=== PATIENT | female | born 1935 | race Caucasian/White ===

== ENCOUNTER → 2016-04-03 12:37 | Outpatient (CLI) | payer MEDICARE, OTHER ==
[2010-04-09 08:29] VITALS: BMI 24.3
== END | disposition home or self-care (01) ==
LOC: D.CT 12:37
DX: I73.9 Peripheral vascular disease, unspecified (principal)

== ENCOUNTER → 2018-04-02 11:06 | Outpatient (CLI) | payer MEDICARE, OTHER ==
[2010-04-09 08:29] VITALS: BMI 24.3
== END | disposition home or self-care (01) ==
LOC: D.CT 11:00
DX: M25.561 Pain in right knee (principal)

== ENCOUNTER 2018-06-08 21:41 | Inpatient (IN) | payer MEDICARE, OTHER ==
[~2018-06-08] VITALS: Ht 160 cm; Wt 56.6 kg
[2018-06-08 23:08] LABS: BASOPHILS 0.5 % (0-2); EOSINOPHILS 0.3 % (0-7); HEMATOCRIT 34.5 % (36.0-48.0); HEMOGLOBIN 11.9 g/dL (12-16); LYMPHOCYTES 16.7 % (15-50); MCH 29.5 pg (26.0-34.0); MCHC 34.5 g/dL (31.0-37.0); MCV 85.6 fL (80.0-100.0); MEAN PLATELET VOLUME 8.9 fL (7.4-10.4); NEUTROPHILS 64.5 % (40-80); PLATELET COUNT 198 10x3/uL (130-400); RBC 4.03 10x6/uL (4.00-5.40); RDW 19.1 % (11.5-14.5); WBC 11.8 10x3/uL (4.8-10.8)
[2018-06-08 23:22] LABS: ALBUMIN 2.9 g/dL (3.4-5.0); BILIRUBIN - TOTAL 0.26 mg/dL (0.2-1.3); CALCIUM 10.4 mg/dL (8.5-10.1); CARBON DIOXIDE 24.8 mmol/L (21.0-32.0); CREATININE - SERUM 1.5 mg/dL (0.6-1.3); POTASSIUM - SERUM 5.8 mmol/L (3.5-5.1); PROTEIN - SERUM 7.2 g/dL (6.4-8.2)
--- NOTE | 2018-06-08 23:38 | NUR ---
IN AND OUT CATH PERFORMED TO OBTAIN URINE SAMPLE. SAMPLE SENT TO LAB
[2018-06-09] VITALS (8 sets, daily range): BP systolic 128–154; BP diastolic 45–87; Ht 160 cm; Wt 56.6 kg
[2018-06-09 00:06] LABS: APPEARANCE CLEAR (CLEAR); BILIRUBIN NEGATIVE (NEGATIVE); COLOR YELLOW (YELLOW); GLUCOSE NEGATIVE (NEGATIVE); KETONE NEGATIVE (NEGATIVE); NITRITE NEGATIVE (NEGATIVE); PROTEIN NEGATIVE (NEGATIVE); UROBILINOGEN NORMAL (NORMAL)
--- NOTE | 2018-06-09 02:46 | NUR ---
NOTIFIED [facility] THAT PT WAS GOING TO BE ADMITTED.
--- NOTE | 2018-06-09 03:32 | NUR ---
PT RESTING NO DISTRESS NOTED.
--- NOTE | 2018-06-09 03:33 | NUR ---
STOP TIME FOR CA GLUCONATE 1343
--- NOTE | 2018-06-09 03:43 | NUR ---
DENTURE CUP GIVEN TO PT FAMILY FOR DENTURES TO BE PLACED IN.
--- NOTE | 2018-06-09 05:08 | NUR ---
pt resting with family at bedside. no distress noted.
--- NOTE | 2018-06-09 06:23 | NUR ---
PT RESTING NO DISTRESS NOTED. FAMILY AT BEDSIDE. BED LOW LOCKED POSITON, SIDE RAILS UP TIMES TWO, CALL LIGHT WITHIN REACH.
[2018-06-09 06:24] LABS: ANION GAP 11.8 mmol/L (8-16); CALCIUM 10.4 mg/dL (8.5-10.1); CARBON DIOXIDE 23.8 mmol/L (21.0-32.0); CREATININE - SERUM 1.3 mg/dL (0.6-1.3); POTASSIUM - SERUM 5.6 mmol/L (3.5-5.1)
[2018-06-09] MEDS ORDERED: COREG12.5 MG PO (07:39)
[2018-06-09] MEDS ORDERED: BACTRIM 400-801 TAB PO (07:39)
[2018-06-09] MEDS ORDERED: CARAFATE1 G PO (07:39)
[2018-06-09] MEDS ORDERED: COZAAR100 MG PO (07:40)
[2018-06-09] MEDS ORDERED: DEMADEX20 MG PO (07:41)
[2018-06-09] MEDS ORDERED: CARDIZEM CD240 MG PO (07:41)
[2018-06-09] MEDS ORDERED: LANOXIN125 MCG PO (07:42)
[2018-06-09] MEDS ORDERED: MEGACE40 MG PO (07:43)
[2018-06-09] MEDS ORDERED: REMERON15 MG PO (07:44)
[2018-06-09] MEDS ORDERED: HYDROCODON-ACE1 EAC2 PO (07:44)
[2018-06-09] MEDS ORDERED: MIRALAX17 GM PO (07:44)
[2018-06-09] MEDS ORDERED: SENEXON8.6 MG PO (07:45)
[2018-06-09] MEDS ORDERED: ZOFRAN4 MG PO (07:46)
[2018-06-09] MEDS ORDERED: ZANAFLEX2 M1 PO (07:46)
[2018-06-09 08:02] LABS: % SATURATION 49 % (15-55); IRON 160 ug/dl (35-150); TOTAL IRON BIND CAPACITY 321 ug/dl (260-445); UNSAT IRON BIND CAPACITY 161 ug/dl (150-375)
--- NOTE | 2018-06-09 09:10 | NUR ---
SON RICKI AT BEDSIDE. GIVEN UDPATE
--- NOTE | 2018-06-09 12:10 | NUR ---
ATE 50% LUNCH
[2018-06-09 13:13] LABS: ANION GAP 16.5 mmol/L (8-16); CALCIUM 10.1 mg/dL (8.5-10.1); CARBON DIOXIDE 18.2 mmol/L (21.0-32.0)
--- NOTE | 2018-06-09 13:14 | NUR ---
DR SEBASTIAN AT BEDSIDE. GIVEN UPDATE
[2018-06-09 13:24] LABS: POTASSIUM - SERUM 4.7 mmol/L (3.5-5.1)
--- NOTE | 2018-06-09 14:52 | NUR ---
CALLED RICKI (SON) AT THIS TIME. NO ANSWER LEFT MESSAGE PT MOVING TO ROOM 1206 AT THIS TIME.
--- NOTE | 2018-06-09 15:20 | NUR ---
PT ARRIVED TO UNIT VIA WHEELCHAIR ASSISTED BY ICU NURSE. VSS AND WNL. PT TRANSFERRED INTO BED. CALL LIGHT WITHIN REACH, PT RESTING QUIETLY
--- NOTE | 2018-06-09 19:45 | NUR ---
RESUMING CARE. PT LAYING IN BED EYES CLOSED BREATH SOUNDS EVEN UNLABORED , PT ON RA, HAS IV IN LFT AC RUNNING NS@100, ESPANA IN PLACE , NO C/O PAIN OR DISTRESS AT THIS TIME CALL IN REACH WILL CONT TO MONITOR
[2018-06-10] VITALS: BP 158/71
[2018-06-10 04:00] VITALS: BP 117/78
--- NOTE | 2018-06-10 04:18 | NUR ---
I have reviewed this patient and I concur with the Shift Assessment completed by the Licensed Practical Nurse today this shift.
[2018-06-10 05:53] LABS: BASOPHILS 0.4 % (0-2); EOSINOPHILS 0.7 % (0-7); HEMATOCRIT 38.8 % (36.0-48.0); HEMOGLOBIN 13.2 g/dL (12-16); IMMATURE GRANULOCYTES 5.5 % (0-5); LYMPHOCYTES 17.9 % (15-50); MCH 29.5 pg (26.0-34.0); MCV 86.6 fL (80.0-100.0); MEAN PLATELET VOLUME 9.5 fL (7.4-10.4); MONOCYTES 11.4 % (2-11); NEUTROPHILS 64.1 % (40-80); PLATELET COUNT 233 10x3/uL (130-400); RBC 4.48 10x6/uL (4.00-5.40); RDW 19.1 % (11.5-14.5); WBC 11.9 10x3/uL (4.8-10.8)
[2018-06-10 06:15] LABS: ANION GAP 14.4 mmol/L (8-16); CREATININE - SERUM 1.1 mg/dL (0.6-1.3); POTASSIUM - SERUM 5.4 mmol/L (3.5-5.1)
[2018-06-10 07:30] VITALS: BP 128/68
[2018-06-10 10:22] LABS: FOLATE (FOLIC ACID) - SERUM >20.0 ng/mL (>3.0)
[2018-06-10 12:00] VITALS: BP 157/76
--- NOTE | 2018-06-10 20:45 | NUR ---
WATCHING TV QUIELTY.RESP UNALBORED. NO DISTRESS NOTED. IV TO RFA INTACT WITH NO REDNESS OR EDEMA NOTED. DRSG TO LEFT FOOT INTACT WTIH NO DRAINAGE NOTED.CL IN REACH.
[2018-06-10 21:52] VITALS: BP 167/88
[2018-06-11 00:30] VITALS: BP 143/83
--- NOTE | 2018-06-11 02:14 | NUR ---
I have reviewed this patient and I concur with the Shift Assessment completed by the Licensed Practical Nurse today this shift.
[2018-06-11 05:10] VITALS: BP 172/97
[2018-06-11 06:56] LABS: ANION GAP 13.9 mmol/L (8-16); CALCIUM 9.7 mg/dL (8.5-10.1); CARBON DIOXIDE 17.6 mmol/L (21.0-32.0)
[2018-06-11 06:57] LABS: CREATININE - SERUM 0.8 mg/dL (0.6-1.3); POTASSIUM - SERUM 4.5 mmol/L (3.5-5.1)
[2018-06-11 07:03] LABS: BASOPHILS 0.3 % (0-2); EOSINOPHILS 0.5 % (0-7); HEMATOCRIT 37.4 % (36.0-48.0); HEMOGLOBIN 13.1 g/dL (12-16); IMMATURE GRANULOCYTES 2.5 % (0-5); LYMPHOCYTES 18.3 % (15-50); MCH 30.1 pg (26.0-34.0); MEAN PLATELET VOLUME 9.1 fL (7.4-10.4); MONOCYTES 11.6 % (2-11); NEUTROPHILS 66.8 % (40-80); PLATELET COUNT 224 10x3/uL (130-400); RBC 4.35 10x6/uL (4.00-5.40); RDW 18.6 % (11.5-14.5)
[2018-06-11 07:11] LABS: WBC 15.4 10x3/uL (4.8-10.8)
--- NOTE | 2018-06-11 08:00 | NUR ---
PT RESTING IN BED, ASSISTED PT WITH USING THE BEDPAN. SHIFT ASSESSMENT PERFORMED. AM MEDS GIVEN ORDERED. ASSISTED PT WITH BED BATH AND FULL LINEN CHANGE. CHANGED DRESSING TO PT LLE ORDERED. PT TOLERATED WELL. DENIES ANY OTHER NEEDS AT THIS TIME, WILL CONT TO FOLLOW PLAN OF CARE
[2018-06-11 08:01] VITALS: BP 172/92
--- NOTE | 2018-06-11 13:14 | NUR ---
Nutrition Follow Up: Pt stated that her appetite is decreased. RD encouraged pt to increase po intake as able to increase strength, promote healing, etc. Diet: AHA PO Intake: 42% meal avg BM: 06/10/18 Wt loss noted per chart and son Noted pt with chronic LLE wound Labs reviewed Meds noted including Megace, Remeron Rec liberalizing diet to encourage po intake. Will honor food preferences within diet. RD following.
--- NOTE | 2018-06-11 19:00 | NUR ---
BEDSIDE SHIFT REPORT GIVEN. PT RESTING QUIETLY IN BED. NO FURTHER NEEDS.
--- NOTE | 2018-06-11 19:38 | NUR ---
PT IN BED RESTING. AROUSES TO DOOR OPENING. PT DENIES NEEDS AT THIS TIME.
[2018-06-11 20:40] VITALS: BP 154/76
--- NOTE | 2018-06-11 22:39 | NUR ---
IV S[facility] TO [facility] 1 STICK. FLUIDS RESUMED.
[2018-06-12 00:45] VITALS: BP 126/64
--- NOTE | 2018-06-12 05:23 | NUR ---
I have reviewed this patient and I concur with the Shift Assessment completed by the Licensed Practical Nurse today this shift.
[2018-06-12 05:43] VITALS: BP 121/60
[2018-06-12 08:56] LABS: BASOPHILS 0.4 % (0-2); EOSINOPHILS 1.1 % (0-7); HEMOGLOBIN 14.1 g/dL (12-16); IMMATURE GRANULOCYTES 3.8 % (0-5); LYMPHOCYTES 20.6 % (15-50); MCH 30.3 pg (26.0-34.0); MCHC 34.4 g/dL (31.0-37.0); MEAN PLATELET VOLUME 9.1 fL (7.4-10.4); MONOCYTES 8.9 % (2-11); NEUTROPHILS 65.2 % (40-80); PLATELET COUNT 243 10x3/uL (130-400); RBC 4.66 10x6/uL (4.00-5.40); RDW 18.9 % (11.5-14.5); WBC 12.1 10x3/uL (4.8-10.8)
[2018-06-12 09:07] VITALS: BP 102/66
[2018-06-12 09:10] LABS: ANION GAP 13.8 mmol/L (8-16); CARBON DIOXIDE 19.7 mmol/L (21.0-32.0); CREATININE - SERUM 0.9 mg/dL (0.6-1.3); POTASSIUM - SERUM 4.5 mmol/L (3.5-5.1)
--- NOTE | 2018-06-12 11:23 | NUR ---
PT A/O X 4. FAMILY AT BEDSIDE THIS MORNING CONCERNED ABOUT PT SODIUM LEVEL AND WBC COUNT. VITALS STABLE. TOOK MEDICATIONS WITHOUT DIFFICULTY. DENIES PAIN THIS AM. R AC IV WITH NS @ 50. RM AIR. ABD DISTENDED. PACED ON TELE. L LEG ULCER. MEPELEX TO BUTTOCKS. NO FURTHER CONCERNS AT THIS TIME. BED LOWERED AND LOCKED. CL IN REACH. WILL CPOC.
--- NOTE | 2018-06-12 12:10 | NUR ---
Nutrition follow-up: Diet: low sodium PO intake ~25-50% of meals Labs reviewed Wt: 128# RDN following.
[2018-06-12 13:50] VITALS: BP 110/76
[2018-06-12 15:21] LABS: ALBUMIN 2.7 g/dL (3.4-5.0); ANION GAP 17.1 mmol/L (8-16); BILIRUBIN - TOTAL 0.45 mg/dL (0.2-1.3); CALCIUM 9.4 mg/dL (8.5-10.1); CARBON DIOXIDE 18.3 mmol/L (21.0-32.0); POTASSIUM - SERUM 4.4 mmol/L (3.5-5.1); PROTEIN - SERUM 6.2 g/dL (6.4-8.2)
[2018-06-12 17:35] VITALS: BP 158/69
--- NOTE | 2018-06-12 18:35 | NUR ---
I have reviewed this patient and I concur with the Shift Assessment completed by the Licensed Practical Nurse today this shift.
--- NOTE | 2018-06-12 19:19 | NUR ---
PT IN BED RESTING QUIETLY. EVEN AND UNLABORED RESPIRATIONS NOTED AT THIS TIME
[2018-06-12 19:30] VITALS: BP 160/71
--- NOTE | 2018-06-12 19:53 | MORECARE ---
CASE MANAGEMENT DISCHARGE SUMMARY PATIENT: ANAND MURDOCK UNIT: [id number] ADM DATE: 06/11/18 AGE: 82 : 33 SEX: F ROOM/BED: D.1206 AUTHOR: CARLY BALTAZAR PHYSICIAN: REFERRING PHYSICIAN: SAWYER SEBASTIAN MD DATE OF SERVICE: 06/12/18 Discharge Plan Patient Name: ANAND MURDOCK [facility] [facility] 1935 Planned Disposition: Nursing Facility BACILIO Cert Anticipated Discharge Date: Discharge Date: Expected LOS: Initial Reviewer: [email or web address] Initial Review Date: 06/09/2018 Generated: 06/12/18 8:53 pm Coverage Notice Reviewer: [email or web address] Parminder Vallejo Notice Issued Date-Time: 06/10/2018 12:08 Notice Type: Medicare Outpatient Observation Notice Notice Delivered To: Family Member Relationship to Patient: Daughter in Law Dowel Pointer Name: CLAUDIO MURDOCK Delivery Method: HAND - Hand Delivered Mirella Days: Prior Verbal Notification: Recipient Understood Notice: Yes Recipient Signature: Yes Med Rec Note Co-signed by Attending: Coverage Notice Comment: Patient Name: ANAND MURDOCK Page [phone] at 1953 All edits/amendments must be made on the electronic document DICTATION DATE: 06/12/181951 PICC NURSE: NEEMA 06/12/181951 RPT#: [id number] DC DATE: STATUS: ADM IN [place] [address] [place] [address] END OF REPORT
--- NOTE | 2018-06-12 20:05 | MORECARE ---
CASE MANAGEMENT DISCHARGE SUMMARY PATIENT: ANAND MURDOCK UNIT: [id number] ADM DATE: 06/11/18 AGE: 82 : 33 SEX: F ROOM/BED: D.1206 AUTHOR: DELANEY,DOC PHYSICIAN: REFERRING PHYSICIAN: SAWYER SEBASTIAN MD DATE OF SERVICE: 06/12/18 Discharge Plan Patient Name: ANAND MURDOCK Facility: [facility]:[place] : 1935 Planned Disposition: Nursing Facility BACILIO Cert Anticipated Discharge Date: Discharge Date: Expected LOS: Initial Reviewer: [email or web address] Initial Review Date: 06/09/2018 Generated: 06/12/18 9:05 pm Comments DCP- Discharge Planning Updated by [email or web address]: Adeline Maki on 06/12/18 7:[address] LATE ENTRY 1630 CM RECEIVED A TELEPHONE CALL FROM PATIENTS PRIMARY NURSE. PATIENT' SON WISHED TO SPEAK WITH THE MARKETING PROGRAM MANAGER. HE DID NOT WANT TO WORRY HIS MOTHER. THE FAMILY RECEIVED A LETTER FROM THE CARE HOME STATING THEY WOULD HAVE TO PAY TO HOLD THE PATIENT'S BED AT [facility]. CM EXPLAINED I COULD NOT ADDRESS THE LETTER FROM THE FACILITY IT IS THEIR POLICY AND PROCEDURES. EXPLAINED I WOULD CALL THE SON. CM RECEIVED A FACE SHEET W/ SON'S PHONE NUMBER. RICKI MURDOCK AT [phone]. TC TO [facility] AND SPOKE WITH KARL. NO ADMINISTRATIVE STAFF AVAILABLE. SHE IS NOT CERTAIN OF THE LETTER'S CONTENT. SHE ADVISED THE FAMILY "NOT TO WORRY AND TO CALL [facility] ON THURSDAY". SHE STATES THE PATIENT IS IN A DETENTION BED. TC TO THE SON. EXPLAINED I COULD NOT ANSWER HIS QUESTIONS ABOUT THE CARE HOME MAILING. ADVISED HIM I HAD SPOKEN WITH THE WEEKEND CHARGE NURSE. EXPLAINED SHE ADVISED HIM TO CALL [facility] ON THURSDAY. HE KNOWS RU[facility] AND WILL FOLLOWUP WITH HER. HE EXPRESSED HE WOULD LIKEHIS MOTHER TRANSFERED BACK WHEN MEDICALLY SAFE. CM REVIEWED MD PLANS. REASSURED HIM WOULD ARRANGE DISCHARGE AND UPDATE [facility] WHEN PT IS READY FOR DISCHARGE. HE STATES THE FAMILY PLANS FOR HIS MOTHER TO RETURN TO [facility]. CM TO FOLLOW . Coverage Notice Reviewer: [email or web address] - Alicia Vallejo Notice Issued Date-Time: 06/10/2018 12:08 Notice Type: Medicare Outpatient Observation Notice Notice Delivered To: Family Member Relationship to Patient: Daughter in Law Pharmaceutical Sales Representative Name: CLAUDIO MURDOCK Delivery Method: HAND - Hand Delivered Mirella Days: Prior Verbal Notification: Recipient Understood Notice: Yes Recipient Signature: Yes Med Rec Note Co-signed by Attending: Coverage Notice Comment: Last DP export: 06/12/18 6:53 p Patient Name: ANAND MURDOCK Page [phone] at 2004 All edits/amendments must be made on the electronic document DICTATION DATE: 06/12/182004 SCHEDULING AGENT: NEEMA 06/12/182004 RPT#: [id number] [place] DATE: STATUS: ADM IN [facility] [address] [place] [address] END OF REPORT
[2018-06-13] VITALS: BP 143/60
--- NOTE | 2018-06-13 01:20 | NUR ---
I have reviewed this patient and I concur with the Shift Assessment completed by the Licensed Practical Nurse today this shift.
[2018-06-13 04:00] VITALS: BP 126/52
[2018-06-13 06:40] LABS: BASOPHILS 0.2 % (0-2); LYMPHOCYTES 20.6 % (15-50); MCH 29.5 pg (26.0-34.0); MCHC 33.6 g/dL (31.0-37.0); MCV 87.6 fL (80.0-100.0); MEAN PLATELET VOLUME 9.4 fL (7.4-10.4); MONOCYTES 9.8 % (2-11); NEUTROPHILS 65.4 % (40-80); PLATELET COUNT 206 10x3/uL (130-400); RDW 19.3 % (11.5-14.5)
[2018-06-13 06:47] LABS: HEMOGLOBIN 10.9 g/dL (12-16)
[2018-06-13 06:48] LABS: HEMATOCRIT 32.4 % (36.0-48.0)
[2018-06-13 07:01] LABS: ANION GAP 14.3 mmol/L (8-16); CALCIUM 9.3 mg/dL (8.5-10.1); CARBON DIOXIDE 17.9 mmol/L (21.0-32.0); CREATININE - SERUM 0.9 mg/dL (0.6-1.3); POTASSIUM - SERUM 4.2 mmol/L (3.5-5.1)
--- NOTE | 2018-06-13 07:30 | NUR ---
ASSISTED PT ONTO BEDPAN. 50 OUTPUT, CLEAR YELLOW URINE. NO FURTHER CONCERNS
--- NOTE | 2018-06-13 07:31 | NUR ---
PT SITTING UP IN BED. C/O PAIN IN BACK AND ABD. WILL GIVEN NORCO WITH MORNING MEDS PENDING STABLE VITALS. DENIES FURTHER CONERNS AT THIS TIME. DRSG TO L FOOT ULCER C/D/I. STAGE 2 TO BUTTOCKS. R AC IV WITH NS @ 50 CC /HR. BED LOWERED AND LOCKED. CL IN REACH. WILL CPOC.
--- NOTE | 2018-06-13 07:34 | NUR ---
JERILYN FROM CT CALLED, STATED TO HOLD PT FOOD UNTIL CT DONE TODAY. PT MAY STILL DRINK AND TAKE MEDS.
[2018-06-13 08:00] VITALS: BP 113/50
--- NOTE | 2018-06-13 09:52 | NUR ---
PT TO CT VIA BED
--- NOTE | 2018-06-13 10:10 | NUR ---
PT BACK FROM CT VIA BED.
[2018-06-13 12:00] VITALS: BP 151/61
--- NOTE | 2018-06-13 13:46 | NUR ---
I have reviewed this patient and I concur with the Shift Assessment completed by the Licensed Practical Nurse today this shift.
--- NOTE | 2018-06-13 15:22 | NUR ---
PT DRANK CITRATE OF MAG. NO BM AT THIS TIME. SON AT BEDSIDE. NO FURTHER CONCERNS AT THIS TIME.
[2018-06-13 16:22] VITALS: BP 125/56
[2018-06-13 19:38] VITALS: BP 140/62
--- NOTE | 2018-06-13 21:00 | NUR ---
GREETED PATIENT AND INTRODUCED MYSELF. PATIENT DENIES ANY NEEDS AT THIS TIME. CALL LIGHT IN REACH.
--- NOTE | 2018-06-13 23:13 | NUR ---
PATIENT ASLEEP WITH EYES CLOSED. RESPIRATIONS EVEN. NO SIGNS OF DISTRESS. CALL LIGHT IN REACH.
[2018-06-14 00:43] VITALS: BP 131/55
--- NOTE | 2018-06-14 03:14 | NUR ---
PATIENT ASLEEP WITH EYES CLOSED LAYING IN SUPINE POSITION. HOB AT 30 DEGREES. RESPIRATIONS EVEN. NO S/S OF DISTRESS. CALL LIGHT IN REACH.
--- NOTE | 2018-06-14 04:09 | NUR ---
ASSISTED PATIENT ONTO BEDPAN. PATIENT HAD SMALL AMOUNT OF YELLOW CLEAR URINE. PATIENT CLEANED AND REPOSITIONED FOR COMFORT. CALL LIGHT IN REACH
[2018-06-14 04:24] VITALS: BP 123/59
--- NOTE | 2018-06-14 04:59 | NUR ---
ASSISTED PATIENT ONTO BEDPAN. PATIENT PRODUCED CLEAR YELLOW URINE AND SMALL AMOUNT OF LOOSE BM. CALL LIGHT IN REACH.
--- NOTE | 2018-06-14 06:32 | NUR ---
BUTT PASTE AND MEPIPLEX APPLIED TO REDDENED AREA ON BUTTOCK AND COCCYX.
[2018-06-14 06:58] LABS: BASOPHILS 0.4 % (0-2); HEMATOCRIT 31.6 % (36.0-48.0); HEMOGLOBIN 10.6 g/dL (12-16); IMMATURE GRANULOCYTES 3.7 % (0-5); LYMPHOCYTES 20.1 % (15-50); MCH 29.4 pg (26.0-34.0); MCHC 33.5 g/dL (31.0-37.0); MCV 87.8 fL (80.0-100.0); MONOCYTES 6.8 % (2-11); PLATELET COUNT 200 10x3/uL (130-400); RDW 19.4 % (11.5-14.5); WBC 13.7 10x3/uL (4.8-10.8)
[2018-06-14 07:15] LABS: CALCIUM 9.3 mg/dL (8.5-10.1); CARBON DIOXIDE 20.5 mmol/L (21.0-32.0); CREATININE - SERUM 0.8 mg/dL (0.6-1.3); POTASSIUM - SERUM 4.5 mmol/L (3.5-5.1)
[2018-06-14 12:28] VITALS: BP 137/57
[2018-06-14 17:29] VITALS: BP 134/66
--- NOTE | 2018-06-14 18:42 | NUR ---
PT. IN BED, SKIN W/D TO TOUCH, COLOR PALE, RESP. REGULAR AND EVEN AT 18. IV NORMAL SALINE INFUSING AT 50 VIA RIGHT AC. PT. HAD 4 SMALL, LOOSE, STOOLS TODAY. DENIES ANY C/O PAIN WHEN ASKED. C/L WITHIN REACH AND SR'S UP X'S 2.
[2018-06-14 19:39] VITALS: BP 147/61
[2018-06-14 23:43] VITALS: BP 141/55
--- NOTE | 2018-06-15 01:51 | NUR ---
REST IN BED, RESP EVEN, NO DISTRESS. CALL LIGHT IN REACH.
[2018-06-15 04:00] VITALS: BP 154/61
--- NOTE | 2018-06-15 06:24 | NUR ---
I have reviewed this patient and I concur with the Shift Assessment completed by the Licensed Practical Nurse today this shift.
[2018-06-15 07:35] LABS: HEMATOCRIT 35.2 % (36.0-48.0); HEMOGLOBIN 11.9 g/dL (12-16); MCH 29.8 pg (26.0-34.0); MCHC 33.8 g/dL (31.0-37.0); MEAN PLATELET VOLUME 9.2 fL (7.4-10.4); RDW 19.4 % (11.5-14.5); WBC 11.1 10x3/uL (4.8-10.8)
[2018-06-15 07:36] LABS: PLATELET COUNT 241 10x3/uL (130-400)
[2018-06-15 07:54] LABS: ANION GAP 12.7 mmol/L (8-16); CARBON DIOXIDE 22.9 mmol/L (21.0-32.0); CREATININE - SERUM 0.8 mg/dL (0.6-1.3); POTASSIUM - SERUM 4.6 mmol/L (3.5-5.1)
[2018-06-15 08:06] LABS: LYMPHOCYTES 24 % (15-50); MONOCYTES 7 % (2-11); NEUTROPHILS 61 % (40-80); PLATELET ESTIMATE NORMAL
[2018-06-15 09:12] VITALS: BP 169/70
[2018-06-15 12:30] VITALS: BP 151/52
--- NOTE | 2018-06-15 14:50 | NUR ---
Reviewed chart and spoke with pt AHA diet with 100% intake of meals today Pt reports appetite is better than good Pt has no nutrition related questions Pt reports she hopes to d/c tomorrow RD following
[2018-06-15 17:18] VITALS: BP 146/61
[2018-06-15 20:00] VITALS: BP 135/84
--- NOTE | 2018-06-15 20:15 | NUR ---
LYING IN BED. ALERT AND ORIENTED X4. GEN WEAKNESS NOTED. RESP EVEN AND NONLABORED. BBS CTA. NO EDEMA NOTED. BLE ARE DISCOLORED BROWN. DRSG NOTED TO LT ANKLE. SKIN IS DRY, FLAKY. USES BEDPAN. IV OUT AT THIS TIME. DENIES PAIN. NO DISTRESS. SR ELEVATED X2. CL IN REACH.
--- NOTE | 2018-06-15 23:10 | NUR ---
IV RESTARTED AFTER 1 ATTEMPT WITH 22 G IN RT FOREARM. PT LIZ WELL.
[2018-06-16] VITALS: BP 144/60
[2018-06-16 04:30] VITALS: BP 148/74
--- NOTE | 2018-06-16 07:30 | NUR ---
INITIAL ROUNDING ON THE PATIENT, ASSISTED THE PATIENT ONTO THE BEDPAN, SHE DENIES PAIN, NO SOB NOTED.
[2018-06-16 07:58] LABS: BASOPHILS 1.2 % (0-2); HEMATOCRIT 32.1 % (36.0-48.0); IMMATURE GRANULOCYTES 11.8 % (0-5); LYMPHOCYTES 18.3 % (15-50); MCH 30.1 pg (26.0-34.0); MCHC 34.3 g/dL (31.0-37.0); MCV 87.7 fL (80.0-100.0); MEAN PLATELET VOLUME 9.2 fL (7.4-10.4); MONOCYTES 10.1 % (2-11); NEUTROPHILS 57.6 % (40-80); PLATELET COUNT 238 10x3/uL (130-400); RBC 3.66 10x6/uL (4.00-5.40); RDW 19.5 % (11.5-14.5)
[2018-06-16 08:00] LABS: WBC 15.3 10x3/uL (4.8-10.8)
[2018-06-16 08:17] LABS: ANION GAP 14.1 mmol/L (8-16); CALCIUM 9.6 mg/dL (8.5-10.1); CARBON DIOXIDE 20.3 mmol/L (21.0-32.0); CREATININE - SERUM 0.9 mg/dL (0.6-1.3); POTASSIUM - SERUM 4.4 mmol/L (3.5-5.1)
[2018-06-16 08:25] VITALS: BP 153/64
[2018-06-16 16:45] VITALS: BP 151/59
[2018-06-16 20:00] VITALS: BP 155/63
[2018-06-17] VITALS: BP 169/67
--- NOTE | 2018-06-17 02:48 | NUR ---
2029) REC'D AT [facility] OF SHIFT REQUESTING BEDPAN.ASSISTED WITH MINIMAL ASSIST. LIZ WELL.DRSG DRY AND INTACT TO LEFT ANKLE DECLINE FOR DRSG. TO BE EXAMINED OR TOUCHED 'STATES IT HAS TAKEN DR LUI 2 YEARS TO GET IT TO THIS POINT AND I DON'T WANT ANYONE TO MESS WITH IT. UP ON PILLOW FRANCINE WRAP DRY AND INTACT
--- NOTE | 2018-06-17 02:50 | NUR ---
I have reviewed this patient and I concur with the Shift Assessment completed by the Licensed Practical Nurse today this shift.
[2018-06-17 04:00] VITALS: BP 98/56
[2018-06-17 05:43] LABS: BASOPHILS 0.9 % (0-2); EOSINOPHILS 0.9 % (0-7); HEMATOCRIT 31.6 % (36.0-48.0); HEMOGLOBIN 10.9 g/dL (12-16); IMMATURE GRANULOCYTES 10.7 % (0-5); MCH 29.9 pg (26.0-34.0); MCHC 34.5 g/dL (31.0-37.0); MCV 86.8 fL (80.0-100.0); MONOCYTES 12.9 % (2-11); NEUTROPHILS 56.6 % (40-80); PLATELET COUNT 232 10x3/uL (130-400); RBC 3.64 10x6/uL (4.00-5.40); RDW 19.3 % (11.5-14.5); WBC 15.9 10x3/uL (4.8-10.8)
[2018-06-17 06:06] LABS: ANION GAP 14.9 mmol/L (8-16); CALCIUM 9.7 mg/dL (8.5-10.1); CARBON DIOXIDE 19.5 mmol/L (21.0-32.0); CREATININE - SERUM 0.8 mg/dL (0.6-1.3); POTASSIUM - SERUM 4.4 mmol/L (3.5-5.1)
--- NOTE | 2018-06-17 07:11 | NUR ---
INITIAL ROUNDING, PATIENT SLEEPIN, LIGHTS OFF. NO SOB NOTED
[2018-06-17 07:50] VITALS: BP 144/63
[2018-06-17 11:46] LABS: APPEARANCE CLEAR (CLEAR); COLOR YELLOW (YELLOW); SPECIFIC GRAVITY 1.005 (1.005-1.020)
[2018-06-17 11:47] LABS: BACTERIA FEW /hpf (NONE SEEN); BILIRUBIN NEGATIVE (NEGATIVE); EPITHELIAL CELLS OCC /hpf (0-5); GLUCOSE NEGATIVE (NEGATIVE); KETONE NEGATIVE (NEGATIVE); NITRITE NEGATIVE (NEGATIVE); PROTEIN 1+ mg/dL (NEGATIVE); RED CELLS - URINE OCC /hpf (0-5); UROBILINOGEN NORMAL (NORMAL); WHITE CELLS - URINE OCC /hpf (0-5); YEAST <1+ /hpf (NONE SEEN)
[2018-06-17 12:42] VITALS: BP 134/58
[2018-06-17 18:55] VITALS: BP 142/60
[2018-06-18 00:17] VITALS: BP 159/66
[2018-06-18 05:30] VITALS: BP 157/60
--- NOTE | 2018-06-18 07:00 | NUR ---
INITIAL ROUNDING ON THE PATIENT, SHE IS AWAKE AND RESTING IN BED, SHE DENIES PAIN, HEELS ARE OFFLOADED WITH PILLOWS.
[2018-06-18 07:39] LABS: BASOPHILS 1.1 % (0-2); EOSINOPHILS 0.9 % (0-7); HEMATOCRIT 32.7 % (36.0-48.0); HEMOGLOBIN 11.2 g/dL (12-16); IMMATURE GRANULOCYTES 11.7 % (0-5); LYMPHOCYTES 16.5 % (15-50); MCH 29.9 pg (26.0-34.0); MCHC 34.3 g/dL (31.0-37.0); MCV 87.2 fL (80.0-100.0); MEAN PLATELET VOLUME 9.3 fL (7.4-10.4); MONOCYTES 12.8 % (2-11); PLATELET COUNT 225 10x3/uL (130-400); RBC 3.75 10x6/uL (4.00-5.40); RDW 19.7 % (11.5-14.5); WBC 16.1 10x3/uL (4.8-10.8)
[2018-06-18 07:53] LABS: CALC OSMOLALITY 270 mosm/kg (275-300); CALCIUM 10.2 mg/dL (8.5-10.1); CARBON DIOXIDE 19.3 mmol/L (21.0-32.0); CHLORIDE - SERUM 105 mmol/L (98-107); CREATININE - SERUM 0.7 mg/dL (0.6-1.3); GLUCOSE 91 mg/dL (74-106); POTASSIUM - SERUM 4.1 mmol/L (3.5-5.1); SODIUM 135 mmol/L (136-145); UREA NITROGEN 16 mg/dL (7-18); eGFR NON AFRICAN AMERICAN 84 mL/min (90-120)
[2018-06-18 08:10] VITALS: BP 157/69
[2018-06-18 12:05] VITALS: BP 140/53
--- NOTE | 2018-06-18 14:11 | NUR ---
Nutrition Follow Up: Pt stated that her appetite is improving. She said that she is trying to eat more. RD encouraged pt to continue increasing po intake as able and to make staff aware of food preferences. Diet: AHA PO Intake: 27% meal avg BM: 06/17/18 Labs reviewed Meds noted including Megace, Remeron Will change diet to regular to encourage po intake. Rec continue appetite stimulant. Will continue to honor food preferences. RD following.
--- NOTE | 2018-06-18 14:16 | NUR ---
CHANGED THE DRESSING TO LEFT LOWER LEG ORDERED.
[2018-06-18 16:27] VITALS: BP 155/60
[2018-06-18 20:26] VITALS: BP 146/88; BP 165/64
[2018-06-19] VITALS (18 sets, daily range): BP systolic 128–199; BP diastolic 61–98
[2018-06-19 07:07] LABS: HEMATOCRIT 33.4 % (36.0-48.0); HEMOGLOBIN 11.4 g/dL (12-16); MCH 29.8 pg (26.0-34.0); MCHC 34.1 g/dL (31.0-37.0); MCV 87.4 fL (80.0-100.0); MEAN PLATELET VOLUME 9.4 fL (7.4-10.4); PLATELET COUNT 222 10x3/uL (130-400); RBC 3.82 10x6/uL (4.00-5.40); RDW 19.5 % (11.5-14.5)
--- NOTE | 2018-06-19 07:20 | NUR ---
PT'S LEFT SIDE COMPLETELY FLACCID AND HAS LEFT SIDE FACIAL DROOPING. PT CAN MOVE RIGHT EXTREMITIES. PT HAS HEAD TURNED ALL THE WAY TO THE RIGHT BUT CAN NOT MOVE HEAD. PT CAN MAKE EYE CONTACT AND FOLLOW COMMANDS. PT CAN ANSWER QUESTIONS AND IS ALERT AND ORIENTED BUT IS SLOW TO RESPOND. WILL CONTINUE TO MONITOR.
[2018-06-19 07:37] LABS: CALC OSMOLALITY 271 mosm/kg (275-300); CALCIUM 10.1 mg/dL (8.5-10.1); CARBON DIOXIDE 18.8 mmol/L (21.0-32.0); CHLORIDE - SERUM 104 mmol/L (98-107); CKMB 2.5 U/L (0.0-3.6); CREATINE KINASE 36 UL (21-215); GLUCOSE 115 mg/dL (74-106); SODIUM 135 mmol/L (136-145); UREA NITROGEN 16 mg/dL (7-18)
[2018-06-19 07:38] LABS: CREATININE - SERUM 0.9 mg/dL (0.6-1.3); eGFR NON AFRICAN AMERICAN 63 mL/min (90-120)
[2018-06-19 07:39] LABS: TROPONIN-I 0.103 ng/mL (0.000-0.060)
--- NOTE | 2018-06-19 07:45 | NUR ---
PT'S SON CAME TO NURSES STATION AND STATED PT RECENTLY AROUND [place] STOPPED TAKING BLOOD THINNER BECAUSE SHE WAS BLEEDING AND PT DOES HAVE A HX OF AFIB.
--- NOTE | 2018-06-19 07:45 | NUR ---
VERNON JOYCEGLASS SILVERER CALLED AND SAID DR. NICOLE WILL COME FIRST TODAY.
--- NOTE | 2018-06-19 07:54 | NUR ---
SPOKE WITH STACEY CEMENT TILE MAKER AND SHE STATES PT IS 61 PACING ON THE MONITOR.
[2018-06-19 08:23] LABS: EOSINOPHILS 2 % (0-7); LYMPHOCYTES 11 % (15-50); MONOCYTES 9 % (2-11); NEUTROPHILS 72 % (40-80)
[2018-06-19 08:24] LABS: ANISOCYTOSIS 2+; PLATELET ESTIMATE NORMAL
--- NOTE | 2018-06-19 08:26 | NUR ---
SPOKE WITH RADIOLOGY AND THEY STATED THEY CAN NOT DO ESOPHAGRAM TODAY BECAUSE THE RADIOLOGIST HAS ALREADY LEFT. THEY STATED THEY WILL SHOOT FOR TOMMORROW, BUT PT HAS TO BE ABLE TO STAND. PT IS UNABLE TO STAND AT THIS TIME.
--- NOTE | 2018-06-19 08:34 | NUR ---
WILL WAIT FOR DR. NICOLE TO GET HERE BEFORE GIVING PT ANYTHING PO.
--- NOTE | 2018-06-19 09:18 | NUR ---
PT'S SON CAME TO NURSES STATION AND REPORTED TO ME PT'S OTHER SIDE OF FACE NOW DROOPING. WENT INTO PT'S ROOM AND PT'S STATED HER RIGHT LEG IS FIGIDY AND SHE CAN'T STOP IT FROM MOVING. PT'S RIGHT LEG NOT MOVING. ASKED PT TO MOVE RIGHT LEG AND PT CAN MOVE RIGHT LEG. PT CAN ANSWER QUESTIONS BUT IS NOW EVEN MORE SLOWER TO RESPOND. PT STILL CAN NOT TURN HEAD AND NOW CAN NOT MAKE EYE CONTACT. EYES UNABLE TO FOLLOW ANY INSTRUCTIONS OR MOVE FROM PLACE OF FIXATED RIGHT SIDE. AND NOW RIGHT SIDE OF FACE STARTING TO DROOP. CALLED AND SPOKE WITH DR. NICOLE ABOUT NEW CHANGES AND SHE STATES SHE WILL REPORT NEW CHANGES TO DR. LOPEZ BECAUSE SHE WILL BE THE ONE TO SEE PT.
--- NOTE | 2018-06-19 09:26 | NUR ---
LORETTA JOYCESHIPPING AND RECEIVING MATERIAL HANDLER STATES TO CALL DR. LOPEZ AND LET HER KNOW WE THINK PT NEEDS TO BE IN THE UNIT.
--- NOTE | 2018-06-19 09:29 | NUR ---
SPOKE WITH DR. LOPEZ AND GAVE HER FULL REPORT AND NEW CHANGES. SHE STATES TO REPEAT HEAD CT AND TO MOVE PT TO ICU.
--- NOTE | 2018-06-19 09:37 | NUR ---
SPOKE WITH LORETTA JOYCETOWER AIR TRAFFIC CONTROL SPECIALIST AND SHE STATES PT WILL BE GOING TO ROOM 2305 BUT PT NEEDS TO GO TO CT FIRST THEN ICU AND I NEED TO GO WITH PT. SHE STATES TO CALL CT AND LET THEM KNOW YOU HAVE A STAT CT. I VERBALIZED UNDERSTANDING.
--- NOTE | 2018-06-19 09:43 | NUR ---
SPOKE WITH DR. LOPEZ SHE STATES SHE IS GOING TO CANCEL HEAD CT SINCE IT WAS DONE LIKE AN HOUR AGO, AND SHE IS GOING TO ORDER CAROTID DOPPLERS AND CONSULT CARDIOLOGY BECAUSE OF PT'S ELEVATED TROPONIN.
--- NOTE | 2018-06-19 10:20 | NUR ---
OBTAINED EKG. WILL NOTIFY DR. CALZADA OF RESULTS
--- NOTE | 2018-06-19 10:43 | NUR ---
HERLINDA. DR. CALZADA FOR ORDERS
--- NOTE | 2018-06-19 10:52 | NUR ---
OBTAINED ORDERS FROM [facility] FOR LOPRESSOR 5MG IV Q6HPRN AND LOVENOX 1MG/KG Q12. INFORMED OF EKG AND TROPONIN LAB
--- NOTE | 2018-06-19 11:50 | NUR ---
DOPPLER OF CAROTID COMPLETED AT THIS TIME. NOW ECHOCARDIOGRAM BEING PERFORMED.
--- NOTE | 2018-06-19 13:00 | NUR ---
INSERTED ESPANA CATHETER AND CHANGED OUT ALL BED LINENS AND CHANGED GOWN. PT ALSO HAD SMALL BM.
--- NOTE | 2018-06-19 14:33 | NUR ---
CHANGED LEFT LEG VENOUS STASIS ULCER DRESSING ORDERED. VERY LITTLE EXUDATE. APPLIED SCD'S, FLOATED HEELS, AND TURNED TO RIGHT SIDE. LINENS CLEAN AND DRY. FAMILY IN ROOM. VSS.
--- NOTE | 2018-06-19 17:00 | NUR ---
PRN LOPRESSOR GIVEN FOR BP. WILL CONTINUE TO MONITOR. FAMILY VISTING WITH PATIENT.
--- NOTE | 2018-06-19 18:00 | NUR ---
CALLED GEOSPATIAL APPLICATIONS DEVELOPER FOR VASOTEC ORDER
--- NOTE | 2018-06-19 19:40 | NUR ---
ASSESSMENT COMPLETED. SEE ASSESSMENT. AFIB ON THE MONITOR.
--- NOTE | 2018-06-19 21:30 | NUR ---
FAMILY AT BEDSIDE. UPDATE GIVEN. DENIES ANY PAIN OR NEEDS AT THIS TIME. AFIB ON THE MONITOR.
--- NOTE | 2018-06-19 23:00 | NUR ---
REASSESSMENT COMPLETED. DENIES ANY PAIN OR NEEDS AT THIS TIME. ALERT AND ORIENTED X4. REPOSTIONED. TOLLERATED WELL.
[2018-06-20] VITALS (24 sets, daily range): BP systolic 139–199; BP diastolic 52–116
--- NOTE | 2018-06-20 01:00 | NUR ---
EYES CLOSED, RESP EVEN AND UNLABORED. AFIB ON THE MONITOR.
--- NOTE | 2018-06-20 03:00 | NUR ---
REASSESSMENT COMPLETED. WILL CONT TO MONITOR.
[2018-06-20 03:39] LABS: BASOPHILS 0.8 % (0-2); EOSINOPHILS 0.4 % (0-7); HEMATOCRIT 34.6 % (36.0-48.0); HEMOGLOBIN 12.1 g/dL (12-16); IMMATURE GRANULOCYTES 6.8 % (0-5); LYMPHOCYTES 18.2 % (15-50); MCH 30.4 pg (26.0-34.0); MCV 86.9 fL (80.0-100.0); MEAN PLATELET VOLUME 9.1 fL (7.4-10.4); MONOCYTES 11.9 % (2-11); NEUTROPHILS 61.9 % (40-80); PLATELET COUNT 245 10x3/uL (130-400); RBC 3.98 10x6/uL (4.00-5.40); RDW 18.9 % (11.5-14.5); WBC 14.2 10x3/uL (4.8-10.8)
[2018-06-20 03:53] LABS: ALBUMIN 2.7 g/dL (3.4-5.0); ALKALINE PHOSPHATASE 77 U/L (46-116); ALT (SGPT) 61 U/L (10-68); BILIRUBIN - TOTAL 0.67 mg/dL (0.2-1.3); CALC OSMOLALITY 270 mosm/kg (275-300); CALCIUM 10.2 mg/dL (8.5-10.1); CARBON DIOXIDE 18.6 mmol/L (21.0-32.0); CHLORIDE - SERUM 105 mmol/L (98-107); CREATININE - SERUM 0.7 mg/dL (0.6-1.3); GLUCOSE 92 mg/dL (74-106); SODIUM 135 mmol/L (136-145); UREA NITROGEN 14 mg/dL (7-18); eGFR NON AFRICAN AMERICAN 84 mL/min (90-120)
--- NOTE | 2018-06-20 06:06 | NUR ---
0500 B/P ELEVATED 180/103 LOPRESSOR 5MG IV GIVEN REPOSITIONED IN BED FAMILY MEMBERS AT BEDSIDE
--- NOTE | 2018-06-20 09:38 | NUR ---
0700 ASSESSMENT COMPLETE LEFT SIDE FLACID R/T STROKE SON REMAINS AT BEDSIDE EMOTIONAL SUPPORT GIVEN
--- NOTE | 2018-06-20 16:06 | NUR ---
0900 FAMILLY AT BEDSIDE ASKING WHEN MD WILL ROUND GAVE THEM MY BEST ESTIMATE SAID THEY JOSE GO TO [facility] AND THEN COME BACK.
--- NOTE | 2018-06-20 16:13 | NUR ---
1100 THE RADIOLOGIST SAID WILL POSTPONE BARIUM SWALLOW UNTIL TOMORROW WHEN THE PATIENT IS MORE ALERT. PT MUST BE ABLE TO SIT UP ON HER OWN FOR TEST. DR SEBASTIAN AGREED TO DO CT ON THURSDAY ALSO.
--- NOTE | 2018-06-20 16:20 | NUR ---
1300 SON PRESENT AND DID GET TO SPEEK WITH DR SEBASTIAN CONCERNING HIS MOTHER RECOVERY FROM STROKE. LEFT SIDE REMAINS FLACID ABLE TO DO SMALL MATH CALCULATIONS CAN OPEN EYES EQUAL GIANA C/O ACHES OF BODY WHEN TOUCHED.
--- NOTE | 2018-06-20 17:31 | NUR ---
1500 SOFT BROWN BM PER BED DENNIS REPOSITIONED PATIENT NO DISTRESS NOTED
[2018-06-21] VITALS (19 sets, daily range): BP systolic 125–197; BP diastolic 57–109
--- NOTE | 2018-06-21 02:13 | EC ---
PATIENT:ANAND MURDOCK DATE OF SERVICE: 06/11/18 SEX: F MEDICAL RECORD: [id number] DATE OF : 31 LOCATION:[facility] D230 AGE OF PATIENT: 82 ADMISSION DATE: 06/11/18 REFERRING PHYSICIAN: INTERPRETING PHYSICIAN: LEMUEL NARVAEZ MD ECHOCARDIOGRAM REPORT ECHO CHARGES 4 ECHO COMPLETE Date: 06/19/18 CLINICAL DIAGNOSIS: CVA ECHOCARDIOGRAPHIC MEASUREMENTS (adult normal given) AC root (d.<3.7cm) 2.6 cm LV Septum d (<1.2 cm> 0.8 cm Valve Excursion 1.5 cm LV Septum (systole) 1.2 cm Left Atria (s.<4.0cm> 4.8 cm LVPW d(<1.2cm) 1.3 cm RV (d.<2.3cm) 2.9 cm LVPW (sytole) 1.7 cm LV diastole(<5.6CM) 3.8 cm MV E-F(>70mm/sec) cm LV systole 2.1 cm LVOT Diameter 1.6 cm MV exc.(>10mm) cm Est.ejection fraction (50-75%) % DOPPLER: LVIT cm/sec A 29 cm/sec E 125 cm/sec LA cm/sec RVSP 67.9 mmHg LVOT 85 cm/sec AOP1/2T m/s Asc. Ao 134 cm/sec RVOT 87 cm/sec RA cm/sec PA 104 cm/sec AV Gradient Peak 7.2 mmHg AV Mean 4.0 mmHg AV Area 1.4 cm MV Gradient Peak 6.5 mmHg MV Mean 2.1 mmHg MV Area cm COMMENTS: Barrel Endshake Adjuster: Oscar HOLLINS Bread Panner: 3 Dr. Villalobos TAPE# PACS Pericardial Effusion N DATE OF SERVICE: Adequate 2-D, color-flow and spectral Doppler, and M-mode. No LVH. LV internal dimensions are normal. Wall motion is normal. EF is greater than 55%. Aortic valve sclerosis without stenosis by Doppler interrogation. Left atrium is dilated at 4.8 cm. Mitral valve shows no prolapse. Mild MR. Right-sided chambers are grossly normal. Moderate to severe TR by color-flow imaging. ECHOCARDIOGRAM REPORT [id number] ANAND MURDOCK TRANSINT:[id number] Voice Confirmation ID: [id number] DOCUMENT ID: [id number] LEMUEL NARVAEZ MD at 0213 CC: [id number] DICTATION DATE: 06/20/18 1326 SOLE STAPLER WELT: 06/20/18 1404 ADM IN [facility] [address] [place] [id number]
--- NOTE | 2018-06-21 02:13 | CN ---
PATIENT NAME:ANAND MURDOCK MEDICAL RECORD: [id number] : 31 LOCATION:[facility].2305 ADMIT DATE: 06/11/18 ACCOUNT: [id number] CONSULTING PHYSICIAN: LEMUEL NARVAEZ MD REFERRING PHYSICIAN: SAWYER SEBASTIAN MD DATE OF CONSULTATION: 06/20/2018 HISTORY OF PRESENT ILLNESS: An 82-year-old resident of [facility], history of atrial fibrillation, unfortunately had GI bleed back in February with peptic ulcer disease, had to stop her NOAC therapy. She was in the hospital for urinary tract infection as well as slow healing wound, developed facial droop and CVA affecting her left side. She is currently alert and can talk, reports no pain. CT is reviewed with right frontal lobe infarct, certainly concerning for embolic event from atrial fibrillation. We are asked to see her concerning her cardiovascular status. PAST MEDICAL HISTORY: Include: 1. History of sick sinus syndrome, status post pacemakerreplacement. 2. Peptic ulcer disease. 3. Hypertension. MEDICATIONS: Typically include Megace 40 mg p.o. b.i.d., MiraLax 17 g every day, Carafate 1 g a.c. and q.h.s., Demadex 20 mg p.o. day, Remeron 2.5 mg q.h.s., digoxin 0.125 every day, diltiazem 240 every day, losartan 100 every day, carvedilol 12.5 b.i.d. SOCIAL HISTORY: Currently resides in [facility]. Nonsmoker, nondrinker. REVIEW OF SYSTEMS: The patient reports easy bruising but reports no swollen glands. The patient reports no fever, no night sweats, no significant weight gain, no significant weight loss. No significant exercise tolerance. The patient reports no dry eyes, no irritation, no vision change. Patient reports no difficulty hearing and no ear pain. Patient reports no frequent nose bleeds or nose and sinus problems. Patient reports on arm pain on exertion. No shortness of breath while lying down. No history of heart murmur. Patient reports no cough, no wheezing or coughing up blood. Patient reports no abdominal pain, no vomiting. Normal appetite. No diarrhea and not vomiting blood. No nausea and no constipation. Patient reports no incontinence. No difficulty urinating. No hematuria. No increased frequency. Patient reports no muscle aches. No weakness, no arthralgias, no back pain. No swelling of the extremities. Patient reports no abnormal mole, no jaundice, no rashes. Reports no loss of consciousness. No weakness and no numbness. No seizures, dizziness, or headaches. The patient reports no depression, no sleep disturbance, feeling safe in a relationship and no alcohol abuse. Patient reports on fatigue. Reports no runny nose or sinus pressure. No itching, no hives, and no frequent sneezing. PHYSICAL EXAMINATION: GENERAL: Pleasant female in no acute distress. VITAL SIGNS: Blood pressure 173/87, pulse currently 80 and irregular. HEENT: Normocephalic, atraumatic. NECK: No JVD or bruit. HEART: Irregular, rate is controlled. A II/ systolic ejection murmur. LUNGS: Fairly good air excursion. CONSULT REPORT [id number] MATHIEUALEXANDRU ABDOMEN: Soft, nontender. EXTREMITIES: Pulses 2+. No edema. IMPRESSION: Concern obviously for embolic event from atrial fibrillation. It has been over 2 months when she had gastrointestinal bleed. Currently, we will give Lovenox, may rechallenge given high DUNG score of 4 with NOAC at some point. Currently, unable to swallow. Also we will switch her antihypertensive to IV metoprolol and enalapril. TRANSINT:[id number] Voice Confirmation ID: [id number] DOCUMENT ID: [id number] LEMUEL NARVAEZ MD at 0213 CC: [id number] DICTATION DATE: 06/20/18 1246 HOUSEKEEPER/LAUNDRY ASSISTANT: 06/20/18 1307 ADM IN [place] [id number] [place] [id number]
[2018-06-21 03:43] LABS: BASOPHILS 0.3 % (0-2); EOSINOPHILS 0.3 % (0-7); HEMATOCRIT 36.3 % (36.0-48.0); HEMOGLOBIN 12.6 g/dL (12-16); LYMPHOCYTES 17.6 % (15-50); MCH 30.5 pg (26.0-34.0); MCHC 34.7 g/dL (31.0-37.0); MCV 87.9 fL (80.0-100.0); MEAN PLATELET VOLUME 9.5 fL (7.4-10.4); MONOCYTES 9.5 % (2-11); NEUTROPHILS 67.3 % (40-80); PLATELET COUNT 246 10x3/uL (130-400); RBC 4.13 10x6/uL (4.00-5.40); RDW 18.6 % (11.5-14.5); WBC 11.8 10x3/uL (4.8-10.8)
[2018-06-21 04:05] LABS: ALBUMIN 2.4 g/dL (3.4-5.0); BILIRUBIN - TOTAL 0.64 mg/dL (0.2-1.3); CALCIUM 9.8 mg/dL (8.5-10.1); CARBON DIOXIDE 18.9 mmol/L (21.0-32.0); CREATININE - SERUM 0.8 mg/dL (0.6-1.3); POTASSIUM - SERUM 3.9 mmol/L (3.5-5.1); PROTEIN - SERUM 6.6 g/dL (6.4-8.2)
--- NOTE | 2018-06-21 09:33 | NUR ---
Nutrition follow-up: Pt sleeping. NPO Rapid Response called 06/19; pt now in ICU PO intake bedore rapid was ~33% of meals Labs reviewed Pt is now assessed with severe malnutrition of acute illness R/T ARF AEB: 1) < 50% intake of estimated energy needs for > 5 days 2) measurably reduced talent partner strength Will need to begin nutrition support if diet unable to advanced within [address] following.
--- NOTE | 2018-06-21 09:56 | NUR ---
0700 LETHARGIC SPEECH CLEAR ASSESSMENT COMPLETE
--- NOTE | 2018-06-21 10:09 | NUR ---
[address] RAD[address]Y FOR [address] SCAN
--- NOTE | 2018-06-21 10:10 | NUR ---
0945 RETURNED FROM RADIOLOGY NO ACUTE DISTRESS NOTED SPOKE WITH SON ON PHONE GIVING UPDATE SAYS HE WILL BE HERE AND WANTS TO TALK WITH DR SEBASTIAN
--- NOTE | 2018-06-21 11:37 | NUR ---
Earle TILLMAN PERFORMING BEDSIDE SWALLOW PATIENT MAY HAVE HONEY THICK LIQUIDS AND ALTERNATE WITH SMALL BITES OF PUREED DIET TOTAL FEED ASSIST MUST SIT UP 90 DEGREES WITH MEALS
[2018-06-21 15:28] LABS: APPEARANCE CLEAR (CLEAR); BILIRUBIN NEGATIVE (NEGATIVE); COLOR YELLOW (YELLOW); GLUCOSE NEGATIVE (NEGATIVE); KETONE NEGATIVE (NEGATIVE); NITRITE NEGATIVE (NEGATIVE); PROTEIN 1+ mg/dL (NEGATIVE); UROBILINOGEN NORMAL (NORMAL)
[2018-06-21 15:37] LABS: RED CELLS - URINE 0-5 /hpf (0-5); WHITE CELLS - URINE OCC /hpf (0-5)
--- NOTE | 2018-06-21 20:15 | NUR ---
PT SON AND OTHER FAMILY AT BEDSIDE, UPDATE GIVEN, PT HAD x1 SEMISOLID PINON BROWN BM, PT CLEANED AND COMPLETE LINEN CHANGE, ICE WATER GIVEN PER REQUEST, PT IN NO ACUTE DISTRESS, SON ASKED TO BE NOTIFIED WHEN PT TRXF, NO OTHER NEEDS STATED FROM PT OR FAMILY AT THIS TIME, WILL CONTINUE TO MONITOR
--- NOTE | 2018-06-21 23:00 | NUR ---
PT RESTING IN BED SLEEPING, WITH NO S/S OF ACUTE DISTRESS, PAIN DENIED BY PT, VSS, MEDS GIVEN PER MAR, LMFT STRENGTH ON LEFT SIDE MINIMAL BUT FOOT MOVEMENT NOTED FREQUENTLY
[2018-06-22 04:59] LABS: BASOPHILS 0.3 % (0-2); EOSINOPHILS 0.3 % (0-7); HEMATOCRIT 35.7 % (36.0-48.0); HEMOGLOBIN 12.2 g/dL (12-16); IMMATURE GRANULOCYTES 3.5 % (0-5); LYMPHOCYTES 18.7 % (15-50); MCH 30.4 pg (26.0-34.0); MCHC 34.2 g/dL (31.0-37.0); MEAN PLATELET VOLUME 9.3 fL (7.4-10.4); MONOCYTES 11.1 % (2-11); NEUTROPHILS 66.1 % (40-80); PLATELET COUNT 234 10x3/uL (130-400); RBC 4.01 10x6/uL (4.00-5.40); RDW 19.1 % (11.5-14.5)
[2018-06-22 06:41] LABS: ALBUMIN 2.5 g/dL (3.4-5.0); ALKALINE PHOSPHATASE 76 U/L (46-116); ALT (SGPT) 102 U/L (10-68); BILIRUBIN - TOTAL 0.48 mg/dL (0.2-1.3); CALC OSMOLALITY 280 mosm/kg (275-300); CALCIUM 9.1 mg/dL (8.5-10.1); CARBON DIOXIDE 19.7 mmol/L (21.0-32.0); CHLORIDE - SERUM 108 mmol/L (98-107); CREATININE - SERUM 0.7 mg/dL (0.6-1.3); GLUCOSE 89 mg/dL (74-106); SODIUM 140 mmol/L (136-145); eGFR NON AFRICAN AMERICAN 84 mL/min (90-120)
[2018-06-22 06:42] LABS: UREA NITROGEN 20 mg/dL (7-18)
[2018-06-22 07:00] VITALS: BP 192/95
--- NOTE | 2018-06-22 08:14 | NUR ---
UP IN BED AT THIS TIME, FAMILY AT BEDSIDE FEEDING PT BREAKFAST. PT ONLY EATING A SMALL AMOUNT OF CREAM OF WHEAT AND VERY SMALL AMOUNT OF THICKENED DRINK. NO ACUTE DISTRESS NOTED. WILL CONTINUE PLAN OF CARE.
--- NOTE | 2018-06-22 10:13 | NUR ---
UP IN BED AT THIS TIME. FAMILY AT BEDSIDE. NO ACUTE DISTRESS NOTED. PT EYES CLOSED, RESPONDS WHEN SPOKEN TO. TURNED Q2H. WILL CONTINUE PLAN OF CARE.
[2018-06-22 11:00] VITALS: BP 131/55
--- NOTE | 2018-06-22 12:12 | NUR ---
OFFERED PT LUNCH AT THIS TIME, SHE REFUSED STATING SHE WAS NOT HUNGRY. ALSO OFFERED PT A DRINK AND SHE STATED SHE DID NOT WANT IT. WILL CONTINUE TO OFFER FOOD AND DRINKS. PT UP IN BED. TURNED Q2H. ORAL CARE PROVIDED Q2H. WILL CONTINUE PLAN OF CARE.
--- NOTE | 2018-06-22 12:14 | NUR ---
PER BRYON BRAN TO GIVE METOPROLOL AND DIGOXIN WITH PULSE RATE TRENDING 59-64. ABLE TO ADMIN THE IV METOPROLOL. PT REFUSED ALL PO MEDS AT THIS TIME. WILL NOTIFY PHYSICIAN. WILL CONTINUE PLAN OF CARE.
--- NOTE | 2018-06-22 13:11 | NUR ---
PT FAMILY AT BEDSIDE AT THIS TIME. PT AGREED TO TAKE DIGOXIN AND FLORAGEN NOW. ADMIN DOCCUMENTED. NO ACUTE DISTRESS NOTED. WILL CONTINUE PLAN OF CARE.
--- NOTE | 2018-06-22 14:50 | NUR ---
REPORT CALLED TO RECIEVING NURSE FOR PT TO GO TO ROOM 2107. ALSO PT RECIEVED BATH AT THIS TIME, TOTAL LINEN CHANGE PROVIDED, ROYAL CARE AND ESPANA CARE PROVIDED. NO ACUTE DISTRESS NOTED. VSS. PT STATES SHE FEELS MUCH BETTER AFTER RECIEVING A BATH. WILL TRANSFER PT SHORTLY.
[2018-06-22 15:00] VITALS: BP 117/51
--- NOTE | 2018-06-22 15:17 | NUR ---
TRANSFERRED TO ROOM 2108 AT THIS TIME WITH ALL PERSONAL ITEMS VIA BED ACCOMPANIED BY HOSPITAL STAFF. NO ACUTE DISTRESS NOTED. NO FURTHER ACTIONS.
--- NOTE | 2018-06-22 15:19 | NUR ---
PTS DAUGHTER IN LAW, CLAUDIO, NOTIFIED OF TRANSFER.
--- NOTE | 2018-06-22 15:26 | NUR ---
PT RECEIVED TO FLOOR VIA BED. PT ALERT/CONFUSED. FAMILY AT BEDSIDE. IV TO R FOREARM WITH NS @ 50 CC/HR. ROOM AIR. ESPANA IN PLACE. SKIN WARM/DRY. DRSG C/D/I TO L ANKLE. NO FURTHER CONCERNS AT THIS TIME. BED LOWERED AND LOCKED. CL IN REACH. WILL CPOC.
[2018-06-22 16:47] VITALS: BP 168/57
--- NOTE | 2018-06-22 19:08 | NUR ---
INTRODUCED SELF TO PATIENT, PATIENT HAD SON AT BEDSIDE. RESP EVEN AND UNLABORED, NO NEEDS AT THIS TIME. M
[2018-06-22 20:35] VITALS: BP 176/66
[2018-06-23] VITALS (7 sets, daily range): BP systolic 120–168; BP diastolic 60–86
[2018-06-23 07:47] LABS: BASOPHILS 0.5 % (0-2); EOSINOPHILS 1.3 % (0-7); HEMOGLOBIN 12.2 g/dL (12-16); IMMATURE GRANULOCYTES 3.5 % (0-5); LYMPHOCYTES 20.9 % (15-50); MCHC 33.9 g/dL (31.0-37.0); MCV 88.7 fL (80.0-100.0); MEAN PLATELET VOLUME 9.7 fL (7.4-10.4); MONOCYTES 12.3 % (2-11); NEUTROPHILS 61.5 % (40-80); PLATELET COUNT 236 10x3/uL (130-400); RBC 4.06 10x6/uL (4.00-5.40); RDW 19.2 % (11.5-14.5)
--- NOTE | 2018-06-23 07:52 | NUR ---
GOT PT OFF BEDPAN, PT ONLY HAD SMEAR OF BM. CLEANED PT UP AND REPOSTIONED HER IN BED. PT A/O X1, RESP EVEN AND NONLABORED ON RA, MONITO SHOWING ST 117. ESPANA DRAINING LAMINE URINE TO GRAVITY. PT DENIES ANY OTHER NEEDS AT THIS TIME. CALL LIGHT IN REACH, BEDSIDE RAILS X2, NAD NOTED, FAMLY AT BEDSIDE, WILL CONTINUE PLAN OF CARE.
[2018-06-23 08:14] LABS: ALBUMIN 2.5 g/dL (3.4-5.0); ALKALINE PHOSPHATASE 65 U/L (46-116); ALT (SGPT) 96 U/L (10-68); BILIRUBIN - TOTAL 0.38 mg/dL (0.2-1.3); CALC OSMOLALITY 283 mosm/kg (275-300); CALCIUM 8.8 mg/dL (8.5-10.1); CARBON DIOXIDE 20.5 mmol/L (21.0-32.0); CHLORIDE - SERUM 110 mmol/L (98-107); CREATININE - SERUM 0.7 mg/dL (0.6-1.3); GLUCOSE 100 mg/dL (74-106); POTASSIUM - SERUM 3.6 mmol/L (3.5-5.1); PROTEIN - SERUM 6.4 g/dL (6.4-8.2); SODIUM 142 mmol/L (136-145); UREA NITROGEN 15 mg/dL (7-18); eGFR NON AFRICAN AMERICAN 84 mL/min (90-120)
--- NOTE | 2018-06-23 11:16 | NUR ---
CALLED PHARMACY AND INFORMED GONZALEZ THAT I NEED BACTROBAN OINTMENT FOR PT.
--- NOTE | 2018-06-23 19:45 | NUR ---
PT RESTING IN BED. EYES OPEN ALERT X3. CONFUSED TO SITUATION. NO SIGNS OF DISTRESS. BREATHING EVEN AND UNLABORED. PT STATES NO PROBLEMS AT THIS TIME. BOWEL SOUNDS ACITVE. ESPANA IN PLACE. NO SIGNS OF INFECTION. CLEAN DRY AND INTACT. LT SIDE FLACCID. PT IS BED BOUND. WILL CONTINUE PLAN OF CARE. CALL LIGHT IN REACH. BED LOWERED AND LOCKED. BED RAILS UP X2.
[2018-06-24] VITALS: BP 188/81
--- NOTE | 2018-06-24 04:25 | NUR ---
I have reviewed this patient and I concur with the Shift Assessment completed by the Licensed Practical Nurse today this shift.
[2018-06-24 06:06] VITALS: BP 186/97
[2018-06-24 06:09] LABS: BASOPHILS 0.8 % (0-2); EOSINOPHILS 2.1 % (0-7); HEMATOCRIT 32.3 % (36.0-48.0); HEMOGLOBIN 11.3 g/dL (12-16); IMMATURE GRANULOCYTES 3.5 % (0-5); LYMPHOCYTES 23.1 % (15-50); MCH 30.5 pg (26.0-34.0); MCV 87.3 fL (80.0-100.0); MEAN PLATELET VOLUME 9.9 fL (7.4-10.4); MONOCYTES 13.1 % (2-11); NEUTROPHILS 57.4 % (40-80); PLATELET COUNT 246 10x3/uL (130-400); WBC 10.7 10x3/uL (4.8-10.8)
[2018-06-24 06:25] LABS: ALBUMIN 2.4 g/dL (3.4-5.0); ALKALINE PHOSPHATASE 66 U/L (46-116); ALT (SGPT) 93 U/L (10-68); BILIRUBIN - TOTAL 0.43 mg/dL (0.2-1.3); CALCIUM 8.3 mg/dL (8.5-10.1); CARBON DIOXIDE 18.9 mmol/L (21.0-32.0); CHLORIDE - SERUM 109 mmol/L (98-107); CREATININE - SERUM 0.6 mg/dL (0.6-1.3); GLUCOSE 97 mg/dL (74-106); SODIUM 141 mmol/L (136-145); eGFR NON AFRICAN AMERICAN > 90 mL/min (90-120)
[2018-06-24 06:43] LABS: CALC OSMOLALITY 279 mosm/kg (275-300); UREA NITROGEN 11 mg/dL (7-18)
--- NOTE | 2018-06-24 07:45 | NUR ---
RECIEVED BEDSIDE REPORT. ROUNDS COMPLETED. VSS, AAOX2. SON IN-LAW AT BED SIDE. NO S/S OF RR DISTRESS. ALL MEDS CRUSHED AND GIVEN IN CHOCOLATE PUDDING. PT APPEARS A LITTLE LETARGIC. STATES SHE IS EXCITED TO GO BACK TO [facility]. WILL CPOC. CL IN REACH, BED IN LOW SR UP X2.
[2018-06-24 09:06] VITALS: BP 195/89
--- NOTE | 2018-06-24 11:11 | NUR ---
Rehab Note- Acute Inpatient Rehab prescreen order received. Spoke with TYRELL Garcia- stated the patient is a LTC resident and plans to return there. Thank you for this referral! Olivia Archibald RN CLinical Liaison, [facility] Rehab
--- NOTE | 2018-06-24 12:23 | NUR ---
Nutrition follow-up: Diet: regualr puree with honey thick liquids PO intake ~25% of meals; pt must be fed Labs reviewed Wt: 126# +BM RDN following.
[2018-06-24 13:02] VITALS: BP 178/60
[2018-06-24 18:32] VITALS: BP 162/59
--- NOTE | 2018-06-24 19:21 | NUR ---
RECIEVED BEDSIDE REPORT. ROUNDS COMPLETED. VSS, AAOX2. SON IN-LAW @ BEDSIDE. NO S/S OF RR DISTRESS. ALL MEDS CRUSHED AND GIVEN IN CHOCOLATE PUDDING. PT APPEARS A LITTLE LETHARGIC. CONTACT PRE[facility]. SHE STATES SHE IS [facility] TO [facility]. DENIES ANY FURTHER NEEDS AT THIS TIME. WILL CPOC. CL IN REACH, BED IN LOW, SR UP X2.
[2018-06-24 20:00] VITALS: BP 162/63
--- NOTE | 2018-06-24 21:02 | NUR ---
PT CURRENTLY RESTING IN BED WITH EYES CLOSED AM MEDS GIVEN AT THIS TIME. WILL CTM. CL IN REACH, BED IN LOW, SR UP X2.
[2018-06-25] VITALS: BP 179/76
[2018-06-25 04:00] VITALS: BP 193/87
--- NOTE | 2018-06-25 04:35 | NUR ---
FUR MACHINE OPERATOR REPORT THAT PT SBP IS 190'S. IV VASOTEC GIVEN AT THIS TIME. ICE CHIPS GIVEN PER PT REQUEST. WILL CTM. CL IN REACH, BED IN LOW, SR UP X2.
[2018-06-25 04:59] LABS: BASOPHILS 1.2 % (0-2); EOSINOPHILS 1.2 % (0-7); HEMATOCRIT 35.5 % (36.0-48.0); HEMOGLOBIN 12.2 g/dL (12-16); IMMATURE GRANULOCYTES 6.7 % (0-5); LYMPHOCYTES 20.1 % (15-50); MCH 30.6 pg (26.0-34.0); MCHC 34.4 g/dL (31.0-37.0); MEAN PLATELET VOLUME 9.8 fL (7.4-10.4); MONOCYTES 13.8 % (2-11); PLATELET COUNT 233 10x3/uL (130-400); RBC 3.99 10x6/uL (4.00-5.40); RDW 20.1 % (11.5-14.5); WBC 11.6 10x3/uL (4.8-10.8)
[2018-06-25 05:01] LABS: CALC OSMOLALITY 278 mosm/kg (275-300); CALCIUM 8.4 mg/dL (8.5-10.1); CARBON DIOXIDE 19.5 mmol/L (21.0-32.0); CHLORIDE - SERUM 111 mmol/L (98-107); CREATININE - SERUM 0.6 mg/dL (0.6-1.3); GLUCOSE 107 mg/dL (74-106); POTASSIUM - SERUM 3.9 mmol/L (3.5-5.1); SODIUM 141 mmol/L (136-145); eGFR NON AFRICAN AMERICAN > 90 mL/min (90-120)
[2018-06-25 05:04] LABS: UREA NITROGEN 8 mg/dL (7-18)
[2018-06-25] MEDS ORDERED: FLAGYL500 MG PO (09:32)
[2018-06-25] MEDS ORDERED: COREG12.5 MG PO (09:33)
[2018-06-25 10:15] VITALS: BP 105/61; BP 196/87
--- NOTE | 2018-06-25 11:11 | MORECARE ---
CASE MANAGEMENT DISCHARGE SUMMARY PATIENT: ANAND MURDOCK UNIT: [id number] ADM DATE: 06/11/18 AGE: 82 : 33 SEX: F ROOM/BED: D.2435 AUTHOR: DELANEY,DOC PHYSICIAN: REFERRING PHYSICIAN: SAWYER SEBASTIAN MD DATE OF SERVICE: 06/25/18 Discharge Plan Patient Name: ANAND MURDOCK Facility: [facility]:[place] : 1935 Planned Disposition: Nursing Facility BACILIO Cert Anticipated Discharge Date: 06/25/18 Discharge Date: Expected LOS: 14 Initial Reviewer: [id number] Initial Review Date: 06/09/2018 Generated: 06/25/18 12:11 pm DCP- Discharge Planning Updated by [email or web address]: Adeline Maki on 06/12/18 7:[address] LATE ENTRY 1630 CM RECEIVED A TELEPHONE CALL FROM PATIENTS PRIMARY NURSE. PATIENT' SON WISHED TO SPEAK WITH THE MOLD COOLER. HE DID NOT WANT TO WORRY HIS MOTHER. THE FAMILY RECEIVED A LETTER FROM THE [facility]PC STATING THEY WOULD HAVE TO PAY TO HOLD THE PATIENT'S BED AT [facility]. CM EXPLAINED I COULD NOT ADDRESS THE LETTER FROM THE FACILITY IT IS THEIR POLICY AND PROCEDURES. EXPLAINED I WOULD CALL THE SON. CM RECEIVED A FACE SHEET W/ SON'S PHONE NUMBER. RICKI MURDOCK AT [phone]. TC TO [facility] AND SPOKE WITH KARL. NO ADMINISTRATIVE STAFF AVAILABLE. SHE IS NOT CERTAIN OF THE LETTER'S CONTENT. SHE ADVISED THE FAMILY "NOT TO WORRY AND TO CALL [facility] ON THURSDAY". SHE STATES THE PATIENT IS IN A FUR TANNER BED. TC TO THE SON. EXPLAINED I COULD NOT ANSWER HIS QUESTIONS ABOUT THE [facility] MAILING. ADVISED HIM I HAD SPOKEN WITH THE WEEKEND CHARGE NURSE. EXPLAINED SHE ADVISED HIM TO CALL RU[facility] ON THURSDAY. HE KNOWS RUPA AND WILL FOLLOWUP WITH HER. HE EXPRESSED HE WOULD LIKEHIS MOTHER TRANSFERED BACK WHEN MEDICALLY SAFE. CM REVIEWED MD PLANS. REASSURED HIM WOULD ARRANGE DISCHARGE AND UPDATE [place] WHEN PT IS READY FOR DISCHARGE. HE STATES THE FAMILY PLANS FOR HIS MOTHER TO RETURN TO [facility]. CM TO FOLLOW . External [facility] Next Contact Date: 06/25/2018 Service Request Date: Service Type: Resolution: Reviewer: Comments: Coverage Notice Reviewer: [id number] Parminder Vallejo Notice Issued Date-Time: 06/10/2018 12:08 Notice Type: Medicare Outpatient Observation Notice Notice Delivered To: Family Member Relationship to Patient: Daughter in Law Clinical Trials Systems Administrator Name: CLAUDIO MURDOCK Delivery Method: HAND - Hand Delivered Mirella Days: Prior Verbal Notification: Recipient Understood Notice: Yes Recipient Signature: Yes Med Rec Note Co-signed by Attending: Coverage Notice Comment: Reviewer: [id number] - Win Rao Notice Issued Date-Time: 06/25/2018 10:50 Notice Type: IM Discharge Notice Notice Delivered To: Family Member Relationship to Patient: Daughter in Law Clinical Trials Systems Administrator Name: claudio murdock Delivery Method: HAND - Hand Delivered Mirella Days: Prior Verbal Notification: Recipient Understood Notice: Yes Recipient Signature: Yes Med Rec Note Co-signed by Attending: Coverage Notice Comment: Last DP export: 06/12/18 7:05 p Patient Name: ANAND MURDOCK Page [phone] at 1111 All edits/amendments must be made on the electronic document DICTATION DATE: 06/25/18 111 STAVE PLANER TENDER: NEEMA 06/25/18 1110 RPT#: [id number] DC DATE: STATUS: ADM IN [facility] [address] [place] [address] END OF REPORT
--- NOTE | 2018-06-25 11:36 | MORECARE ---
CASE MANAGEMENT DISCHARGE SUMMARY PATIENT: ANAND MURDOCK UNIT: [id number] ADM DATE: 06/11/18 AGE: 82 : 33 SEX: F ROOM/BED: D.4497 AUTHOR: DELANEY,DOC PHYSICIAN: REFERRING PHYSICIAN: SAWYER SEBASTIAN MD DATE OF SERVICE: 06/25/18 Discharge Plan Patient Name: ANAND MURDOCK Facility: [facility]:[place] : 1935 Planned Disposition: Nursing Facility BACILIO Cert Anticipated Discharge Date: 06/25/18 Discharge Date: Expected LOS: 14 Initial Reviewer: [id number] Initial Review Date: 06/09/2018 Generated: 06/25/18 12:36 pm Comments DCP- Discharge Planning Updated by [email or web address]: Win Rao on 06/25/18 10:[address] Patient Name: ANAND MURDOCK Encounter No: [id number] : 1935 Primary Insurance: MEDICARE A & B Anticipated DC Date: 06-25-2018 Planned Disposition: Nursing Facility BACILIO Cert External Planned Provider: [facility], WELDING MACHINE OPERATOR [employer] MEDICAID BED DCP follow-up note: CM RECEIVED DISCHARGE ORDER, MET WITH PT AND DAUGHTER IN LAW, CLAUDIO, IN ROOM. ANAND MURDOCK provided verbal consent to discuss current and ongoing needs with/in the presence of: CLAUDIO MURDOCK, DAUGHTER IN LAW. PT LIVES AT [facility] AND WILL RETURN THERE TODAY. PT STATES SHE NEEDS AN AMBULANCE, IT'S BETTER THAN WALKING. PT'S DAUGHTER IN LAW INFORMED CM THAT PT DOES NOT GET UP OR OUT OF BED AND WILL NEED AMBULANCE TRANSPORT. [facility] DID NOT MAKE THEM PAY FOR A BED HOLD FOR PT. PT IS IN SNF CARE AND HAS LIVED IN [facility] THREE YEARS AND HAS REFUSED FOR FAMILY TO TRANSFER HER CLOSER TO THEM AT [facility]. IMPORTANT MESSAGE FROM MEDICARE PROVIDED AND EXPLAINED. CM CALLED FOR ANATOLIY AT [facility], ; ANATOLIY INFORMED CM THAT PT WAS ABLE TO TRANSFER AND SIT IN CHAIR PRIOR TO HOSPITAL ADMISSION, [facility] IS NOT GOING TO PAY FOR AMBULANCE. CM FAXED HOSPITAL UPDATE AND DISCHARGE INFORMATION TO [facility] AT [phone]. FOR DISCHARGE, NURSE REPORT TO BE CALLED TO [facility] AT [phone]. IF PT IS ABLE TO SIT UP FOR TRANSPORT, [facility] TO BE NOTIFIED AND WILL ARRANGE VAN UMBRELLA MENDER. Win Rao, CASE MANAGEMENT DCP- Discharge Planning Updated by [id number]: Adeline Maki on 06/12/18 7:[address] LATE ENTRY 1630 CM RECEIVED A TELEPHONE CALL FROM PATIENTS PRIMARY NURSE. PATIENT' SON WISHED TO SPEAK WITH THE AUTOMOTIVE PRODUCT ENGINEER. HE DID NOT WANT TO WORRY HIS MOTHER. THE FAMILY RECEIVED A LETTER FROM THE LONG-TERM STATING THEY WOULD HAVE TO PAY TO HOLD THE PATIENT'S BED AT [facility]. CM EXPLAINED I COULD NOT ADDRESS THE LETTER FROM THE FACILITY IT IS THEIR POLICY AND PROCEDURES. EXPLAINED I WOULD CALL THE SON. CM RECEIVED A FACE SHEET W/ SON'S PHONE NUMBER. RICKI MATHIEU AT [phone]. TC TO [facility] AND SPOKE WITH KARL. NO ADMINISTRATIVE STAFF AVAILABLE. SHE IS NOT CERTAIN OF THE LETTER'S CONTENT. SHE ADVISED THE FAMILY "NOT TO WORRY AND TO CALL [facility] ON THURSDAY". SHE STATES THE PATIENT IS IN A SNF BED. TC TO THE SON. EXPLAINED I COULD NOT ANSWER HIS QUESTIONS ABOUT THE LONG-TERM MAILING. ADVISED HIM I HAD SPOKEN WITH THE WEEKEND CHARGE NURSE. EXPLAINED SHE ADVISED HIM TO CALL RU[facility] ON THURSDAY. HE KNOWS RUPA AND WILL FOLLOWUP WITH HER. HE EXPRESSED HE WOULD LIKEHIS MOTHER TRANSFERED BACK WHEN MEDICALLY SAFE. CM REVIEWED MD PLANS. REASSURED HIM WOULD ARRANGE DISCHARGE AND UPDATE [facility] WHEN PT IS READY FOR DISCHARGE. HE STATES THE FAMILY PLANS FOR HIS MOTHER TO RETURN TO [facility]. CM TO FOLLOW . Coverage Notice Reviewer: [id number] - Alicia Vallejo Notice Issued Date-Time: 06/10/2018 12:08 Notice Type: Medicare Outpatient Observation Notice Notice Delivered To: Family Member Relationship to Patient: Daughter in Law Catshovel Driver Name: CLAUDIO MURDOCK Delivery Method: HAND - Hand Delivered Mirella Days: Prior Verbal Notification: Recipient Understood Notice: Yes Recipient Signature: Yes Med Rec Note Co-signed by Attending: Coverage Notice Comment: Reviewer: [id number] - Win Rao Notice Issued Date-Time: 06/25/2018 10:50 Notice Type: IM Discharge Notice Notice Delivered To: Family Member Relationship to Patient: Daughter in Law Catshovel Driver Name: claudio murdock Delivery Method: HAND - Hand Delivered Mirella Days: Prior Verbal Notification: Recipient Understood Notice: Yes Recipient Signature: Yes Med Rec Note Co-signed by Attending: Coverage Notice Comment: Last DP export: 06/25/18 10:11 a Patient Name: ANAND MURDOCK Page [phone] at 1136 All edits/amendments must be made on the electronic document DICTATION DATE: 06/25/181134 ONLINE ACTIVIST: NEEMA 06/25/18 113 RPT#: [id number] DC DATE: STATUS: ADM IN [facility] [address] [place] [address] END OF REPORT
--- NOTE | 2018-06-25 12:41 | NUR ---
LEFT LOWER LEG DRESSING CHANGED PER WOUND CARE ORDERS.
--- NOTE | 2018-06-25 13:56 | NUR ---
REPORTED TO DR. SEBASTIAN THAT TODAY PT'S URINE IS STARTING TO LOOK A LITTLE BLOODY HE STATES "THAT'S JUST ESPANA TRAUMA GO AHEAD AND TAKE IT OUT BEFORE SHE GOES." PT IS GETTING DISCHARGE TO [facility].
--- NOTE | 2018-06-25 14:11 | MORECARE ---
CASE MANAGEMENT DISCHARGE SUMMARY PATIENT: ANAND MURDOCK UNIT: [id number] ADM DATE: 06/11/18 AGE: 82 : 33 SEX: F ROOM/BED: D.5948 AUTHOR: DELANEY,DOC PHYSICIAN: REFERRING PHYSICIAN: SAWYER SEBASTIAN MD DATE OF SERVICE: 06/25/18 Discharge Plan Patient Name: ANAND MURDOCK Facility: [facility]:[place] : 1935 Planned Disposition: Nursing Facility BACILIO Cert Anticipated Discharge Date: 06/25/18 Discharge Date: Expected LOS: 14 Initial Reviewer: [id number] Initial Review Date: 06/09/2018 Generated: 06/25/18 3:10 pm Comments DCP- Discharge Planning Updated by [email or web address]: Win Rao on 06/25/18 1:[address] Patient Name: ANAND MURDOCK Encounter No: [id number] : 1935 Primary Insurance: MEDICARE A & B Anticipated DC Date: 06-25-2018 Planned Disposition: Nursing Facility BACILIO Cert External Planned Provider: [facility], [facility] MEDICAID BED DCP follow-up note: CM RECEIVED DISCHARGE ORDER, MET WITH PT AND DAUGHTER IN LAW, MALDONADO, IN ROOM. ANAND MURDOCK provided verbal consent to discuss current and ongoing needs with/in the presence of: MALDONADO MURDOCK, DAUGHTER IN LAW. PT LIVES AT [facility] AND WILL RETURN THERE TODAY. PT STATES SHE NEEDS AN AMBULANCE, IT'S BETTER THAN WALKING. PT'S DAUGHTER IN LAW INFORMED CM THAT PT DOES NOT GET UP OR OUT OF BED AND WILL NEED AMBULANCE TRANSPORT. [facility] DID NOT MAKE THEM PAY FOR A BED HOLD FOR PT. PT IS IN [facility] CARE AND HAS LIVED IN [facility] THREE YEARS AND HAS REFUSED FOR FAMILY TO TRANSFER HER CLOSER TO THEM AT [facility]. IMPORTANT MESSAGE FROM MEDICARE PROVIDED AND EXPLAINED. CM CALLED FOR ANATOLIY AT [facility], ; ANATOLIY INFORMED CM THAT PT WAS ABLE TO TRANSFER AND SIT IN CHAIR PRIOR TO HOSPITAL ADMISSION, [facility] IS NOT GOING TO PAY FOR AMBULANCE. CM FAXED HOSPITAL UPDATE AND DISCHARGE INFORMATION TO [facility] AT [phone]. FOR DISCHARGE, NURSE REPORT TO BE CALLED TO [facility] AT [phone]. IF PT IS ABLE TO SIT UP FOR TRANSPORT, [facility] TO BE NOTIFIED AND WILL ARRANGE VAN DAYCARE PROVIDER. Win Rao, CASE MANAGEMENT Appended by Win Rao on 06/25/2018 14:07 CDT: CM CALLED AND SPOKE TO SULTANA AT [facility], , WHO REPORTED THEY WILL ACCEPT PT TODAY. CM NOTIFIED OF THERAPY RECOMMENDATION OF AMBULANCE TRANSPORT. FOR DISCHARGE, NURSE REPORT TO BE CALLED TO [facility] AT [phone]. PT TO TRANSPORT VIA AMBULANCE. Win Rao, CASE MANAGEMENT DCP- Discharge Planning Updated by [id number]: Adelinemontserrat Maki on 06/12/18 7:[address] LATE ENTRY 1630 CM RECEIVED A TELEPHONE CALL FROM PATIENTS PRIMARY NURSE. PATIENT' SON WISHED TO SPEAK WITH THE PRODUCT MARKETING ANALYST. HE DID NOT WANT TO WORRY HIS MOTHER. THE FAMILY RECEIVED A LETTER FROM THE [facility] STATING THEY WOULD HAVE TO PAY TO HOLD THE PATIENT'S BED AT [facility]. CM EXPLAINED I COULD NOT ADDRESS THE LETTER FROM THE FACILITY IT IS THEIR POLICY AND PROCEDURES. EXPLAINED I WOULD CALL THE SON. CM RECEIVED A FACE SHEET W/ SON'S PHONE NUMBER. RICKI MURDOCK AT [phone]. TC TO [facility] AND SPOKE WITH KARL. NO ADMINISTRATIVE STAFF AVAILABLE. SHE IS NOT CERTAIN OF THE LETTER'S CONTENT. SHE ADVISED THE FAMILY "NOT TO WORRY AND TO CALL [facility] ON THURSDAY". SHE STATES THE PATIENT IS IN A [facility] BED. TC TO THE SON. EXPLAINED I COULD NOT ANSWER HIS QUESTIONS ABOUT THE [facility] MAIL[facility]. ADVISED HIM I HAD SPOKEN WITH THE WEEKEND CHARGE NURSE. EXPLAINED SHE ADVISED HIM TO CALL [facility] ON THURSDAY. HE KNOWS RUPA AND WILL FOLLOWUP WITH HER. HE EXPRESSED HE WOULD LIKEHIS MOTHER TRANSFERED BACK WHEN MEDICALLY SAFE. CM REVIEWED MD PLANS. REASSURED HIM WOULD ARRANGE DISCHARGE AND UPDATE [facility] WHEN PT IS READY FOR DISCHARGE. HE STATES THE FAMILY PLANS FOR HIS MOTHER TO RETURN TO [facility]. CM TO FOLLOW . Coverage Notice Reviewer: [id number] - Alicia Vallejo Notice Issued Date-Time: 06/10/2018 12:08 Notice Type: Medicare Outpatient Observation Notice Notice Delivered To: Family Member Relationship to Patient: Daughter in Law Supervisor Felling Bucking Name: MALDONADO MURDOCK Delivery Method: HAND - Hand Delivered Mirella Days: Prior Verbal Notification: Recipient Understood Notice: Yes Recipient Signature: Yes Med Rec Note Co-signed by Attending: Coverage Notice Comment: Reviewer: [id number] Parminder Rao Notice Issued Date-Time: 06/25/2018 10:50 Notice Type: IM Discharge Notice Notice Delivered To: Family Member Relationship to Patient: Daughter in Law Supervisor Felling Bucking Name: maldonado murdock Delivery Method: HAND - Hand Delivered Mirella Days: Prior Verbal Notification: Recipient Understood Notice: Yes Recipient Signature: Yes Med Rec Note Co-signed by Attending: Coverage Notice Comment: Last DP export: 06/25/18 10:36 a Patient Name: ANAND MURDOCK Page [phone] at 1411 All edits/amendments must be made on the electronic document DICTATION DATE: 06/25/18 1410 DENTURE MODEL MAKER: NEEMA 06/25/18 1410 RPT#: [id number] GA DATE: STATUS: ADM IN [facility] [address] [place] [address] END OF REPORT
--- NOTE | 2018-06-25 14:16 | NUR ---
MALORIE BAKER. PT TOLERATED WELL. STATED TO PT AND PT'S FAMILY MEMEBER WHEN PT THINKS SHE HAS TO PEE TO LET US KNOW AND WE WILL PLACE HER ON A BEDPAN.
--- NOTE | 2018-06-25 14:24 | NUR ---
CALLED REPORT TO KYUNG DIAZ AT [facility].
--- NOTE | 2018-06-25 16:47 | NUR ---
RIGHT FA IV DC'D WITH CATH INTACT. TELEMTRY DC'D. [facility] CALLED. DISCHARGE EXPPLAINED TO PT'S SON RICKI AND FAMILY. RICKI SIGNED DISCAHRGE PAPERS.
--- NOTE | 2018-06-25 16:58 | NUR ---
PT LEFT ON STRETCHER WITH [employer] ACCOMPANIED BY FAMILY. PAPERWORK GIVEN TO [employer].
== END 2018-06-25 16:57 | DRG 682 ==
LOC: D.ER 21:41 → OBSVTIME 06-09 01:06 → D.EDHOLD 06-09 01:06 → D.ICU 06-09 06:34 → D.M3 06-09 14:53 → D.ICU 06-11 16:52 → D.M2 06-22 15:18
PROVIDERS: Emergency Medicine; Family Medicine; ADMIT Internal Medicine Nephrology; ATTEND Internal Medicine Nephrology
PROC: 5A09357 Assistance with Respiratory Ventilation, Less than 24 Consecutive Hours, Continuous Positive Airway Pressure (ICD-10-PCS; principal; 2018-06-20)
DX: N17.9 Acute kidney failure, unspecified (principal); I63.9 Cerebral infarction, unspecified; E87.1 Hypo-osmolality and hyponatremia; E44.0 Moderate protein-calorie malnutrition; N39.0 Urinary tract infection, site not specified; G81.94 Hemiplegia, unspecified affecting left nondominant side; A04.72 Enterocolitis due to Clostridium difficile, not specified as recurrent; L97.929 Non-pressure chronic ulcer of unspecified part of left lower leg with unspecified severity; E87.5 Hyperkalemia; E83.52 Hypercalcemia; D64.9 Anemia, unspecified; Z68.23 Body mass index [BMI] 23.0-23.9, adult; F03.90 Unspecified dementia, unspecified severity, without behavioral disturbance, psychotic disturbance, mood disturbance, and anxiety; I10 Essential (primary) hypertension; G89.29 Other chronic pain; B96.20 Unspecified Escherichia coli [E. coli] as the cause of diseases classified elsewhere